=== PATIENT | female | born 1965 | race Caucasian/White ===

== ENCOUNTER 2019-08-12 10:11 | Emergency (ER) | payer SELFPAY ==
[2019-08-12] MEDS ORDERED: LORazepam 2 MG/ML SDV IVPUSH ONE (11:10)
[2019-08-12] MEDS ORDERED: Sodium Chloride 0.9% 10 ML Syringe FLUSH PRN (11:11)
[2019-08-12] MEDS ORDERED: Sodium Chloride 0.9% 1,000 ML IV SCH (11:15)
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
== END 2019-08-12 13:40 | disposition home or self-care (01) ==
LOC: JD.ED 10:11
DX: F41.9 Anxiety disorder, unspecified (principal); F32.9 Major depressive disorder, single episode, unspecified; F17.210 Nicotine dependence, cigarettes, uncomplicated; Z79.899 Other long term (current) drug therapy
CPT/HCPCS: 36415; 80053; 84443; 85025; 96361; 96374; 99283; J2060; J7040

== ENCOUNTER 2020-03-13 08:01 | Emergency (ER) | payer MEDICAID, OTHER ==
--- NOTE | 2020-03-13 08:43 | EDM.PDOC ---
ED HPI GENERAL MEDICAL PROBLEM - General Chief Complaint: Genitourinary Problem Stated Complaint: URINE RETENTION Time Seen by Provider: 03/13/20 08:10 Source of Information: Reports: Patient History Limitations: Reports: No Limitations - History of Present Illness INITIAL COMMENTS - FREE TEXT/NARRATIVE: The patient presents with urinary retention. She says this has been going on for a few days. It feels like she cannot empty her bladder all the way. She is up 4 times at night urinating. She has no burning with urination. Her doctor is trying different meds for her depression and she is concerned this may be affecting her ability to urinate. She has been very depressed lately and not doing much and not getting out of her house. She lays around a lot. She has no fever, chills, cough, congestion, chest pain, nausea or vomiting. She will get some lower abdominal pain at times when she has to urinate. She has never had trouble like this before. Onset: Gradual Duration: Day(s): Location: Reports: Abdomen Quality: Reports: Ache Severity: Mild Improves with: Reports: None Worsens with: Reports: None Associated Symptoms: Reports: No Other Symptoms - Related Data Allergies Allergy/AdvReac Type Severity Reaction Status Date / Time No Known Allergies Allergy Verified 03/13/20 08:18 Home Meds: Home Meds ClonazePAM [KlonoPIN] 1 mg PO BID 08/12/19 [History] Escitalopram Oxalate [Lexapro] 10 mg PO DAILY 03/13/20 [History] Omeprazole Magnesium [Prilosec] 10 mg PO DAILY 03/13/20 [History] PARoxetine [Paxil] 20 mg PO DAILY 03/13/20 [History] cephALEXin [Keflex] 500 mg PO BID #10 capsule 03/13/20 [Rx] Past Medical History Cardiovascular History: Reports: None Respiratory History: Reports: None Gastrointestinal History: Reports: None Genitourinary History: Reports: None 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 Musculoskeletal History: Reports: None Neurological History: Reports: None Psychiatric History: Reports: Anxiety, Depression, Panic Attack Endocrine/Metabolic History: Reports: None Hematologic History: Reports: None Immunologic History: Reports: None Oncologic (Cancer) History: Reports: None Dermatologic History: Reports: None - Infectious Disease History Infectious Disease History: Reports: None - Past Surgical History Head Surgeries/Procedures: Reports: None HEENT Surgical History: Reports: Oral Surgery Female Surgical History: Reports: Other (See Below) Other Female Surgeries/Procedures: uterine fibriod removal Social & Family History - Tobacco Use Smoking Status *Q: Never Smoker - Caffeine Use Caffeine Use: Reports: None - Recreational Drug Use Recreational Drug Use: No ED ROS GENERAL - Review of Systems Review Of Systems: See Below Constitutional: Reports: No Symptoms HEENT: Reports: No Symptoms Respiratory: Reports: No Symptoms Cardiovascular: Reports: No Symptoms Endocrine: Reports: No Symptoms GI/Abdominal: Reports: Abdominal Pain : Reports: Frequency. Denies: Dysuria Musculoskeletal: Reports: No Symptoms ED EXAM, GI/ABD - Physical Exam Exam: See Below Exam Limited By: No Limitations General Appearance: Alert, No Apparent Distress Ears: Normal External Exam Nose: Normal Inspection Head: Atraumatic, Normocephalic Neck: Normal Inspection Respiratory/Chest: No Respiratory Distress, Lungs Clear, Normal Breath Sounds Cardiovascular: Regular Rate, Rhythm, No Edema, No Murmur GI/Abdominal Exam: Soft, Non-Tender, No Organomegaly, No Mass Course - Vital Signs Last Recorded V/S: Last Vital Signs Temp 98.3 F 03/13/20 08:15 Pulse 87 03/13/20 08:15 Resp 16 03/13/20 08:15 BP 105/83 03/13/20 08:15 Pulse Ox 96 03/13/20 08:15 - Orders/Labs/Meds Orders: Active Orders 24 hr Category Date Time Status CULTURE URINE [RM] Stat Lab 03/13/20 08:40 Received Labs: Laboratory Tests 03/13/20 03/13/20 03/13/20 Range/Units 08:40 08:47 08:47 WBC 4.48 (3.98-10.04) K/mm3 RBC 4.01 (3.98-5.22) M/mm3 Hgb 12.1 D (11.2-15.7) gm/dl Hct 37.9 (34.1-44.9) % MCV 94.5 (79.4-94.8) fl MCH 30.2 (25.6-32.2) pg MCHC 31.9 L (32.2-35.5) g/dl RDW Std Deviation 46.4 H (36.4-46.3) fL Plt Count 252 D (182-369) K/mm3 MPV 9.7 (9.4-12.3) fl Neut % (Auto) 64.4 (34.0-71.1) % Lymph % (Auto) 26.3 (19.3-51.7) % [place] % (Auto) 5.6 (4.7-12.5) % Eos % (Auto) 3.1 (0.7-5.8) Baso % (Auto) 0.4 (0.1-1.2) % Neut # (Auto) 2.88 (1.56-6.13) K/mm3 Lymph # (Auto) 1.18 (1.18-3.74) K/mm3 [place] # (Auto) 0.25 (0.24-0.36) K/mm3 Eos # (Auto) 0.14 (0.04-0.36) K/mm3 Baso # (Auto) 0.02 (0.01-0.08) K/mm3 Sodium 142 (136-145) mEq/L Potassium 4.2 (3.5-5.1) mEq/L Chloride 105 (98-107) mEq/L Carbon Dioxide 26 (21-32) mEq/L Anion Gap 15.2 H (5-15) BUN 11 (7-18) mg/dL Creatinine 0.9 (0.55-1.02) mg/dL Est Cr Clr Drug Dosing 67.67 mL/min Estimated GFR (MDRD) > 60 (>60) mL/min BUN/Creatinine Ratio 12.2 L (14-18) Glucose 112 H (74-106) mg/dL Calcium 8.9 (8.5-10.1) mg/dL Total Bilirubin 0.4 (0.2-1.0) mg/dL AST 15 (15-37) U/L ALT 26 (14-59) U/L Alkaline Phosphatase 73 (46-116) U/L Total Protein 6.7 (6.4-8.2) g/dl Albumin 3.5 (3.4-5.0) g/dl Globulin 3.2 gm/dL Albumin/Globulin Ratio 1.1 (1-2) Urine Color Yellow (Yellow) Urine Appearance Clear (Clear) Urine pH 5.5 (5.0-8.0) Ur Specific [place] 1.025 (1.005-1.030) Urine Protein Negative (Negative) Urine Glucose (UA) Negative (Negative) Urine Ketones Negative (Negative) Urine Occult Blood Negative (Negative) Urine Nitrite Negative (Negative) Urine Bilirubin Negative (Negative) Urine Urobilinogen 0.2 (0.2-1.0) Ur Leukocyte Esterase 1+ H (Negative) Urine RBC 0-5 (0-5) /hpf Urine WBC 10-20 H (0-5) /hpf Ur Epithelial Cells 10-20 H (0-5) /hpf Urine Bacteria Many H (FEW) /hpf Urine Mucus Many H (FEW) /hpf - Re-Assessments/Exams Free Text/Narrative Re-Assessment/Exam: 03/13/20 08:56 I ordered a UA and labs. 03/13/20 09:53 Her CBC and CMP look good. Her UA shows a UTI. I have ordered a culture and I will give her some keflex. Departure - Departure Time of Disposition: 09:55 Disposition: Home, Self-Care 01 Condition: Good Clinical Impression: UTI (urinary tract infection) Qualifiers: Urinary tract infection type: acute cystitis Hematuria presence: without hematuria Qualified Code(s): N30.00 - Acute cystitis without hematuria - Discharge Information *PRESCRIPTION DRUG MONITORING PROGRAM REVIEWED*: Not Applicable *COPY OF PRESCRIPTION DRUG MONITORING REPORT IN PATIENT ROSIE: Not Applicable Prescriptions: cephALEXin [Keflex] 500 mg PO BID #10 capsule Referrals: Eloina Tian NP [Primary Care Provider] - 1 Week Forms: ED Department Discharge Additional Instructions: Take the keflex 2 times per day for 5 days. Drink plenty of fluids. Please return if you are worse. Sepsis Event Note - Evaluation Sepsis Screening Result: No Definite Risk - Focused Exam Vital Signs: Vital Signs Temp Pulse Resp BP Pulse Ox 03/13/20 08:15 98.3 F 87 16 105/83 96 Date Exam was Performed: 03/13/20 Time Exam was Performed: 09:53 - My Orders Last 24 Hours: My Active Orders 03/13/20 08:40 CULTURE URINE [RM] Stat - Assessment/Plan Last 24 Hours: My Active Orders 03/13/20 08:40 CULTURE URINE [RM] Stat
[2020-03-13] MEDS ORDERED: Cephalexin 500 MG Cap PO ONE (09:55)
== END 2020-03-13 10:04 | disposition home or self-care (01) ==
LOC: JD.ED 08:01
DX: N30.00 Acute cystitis without hematuria (principal); F41.9 Anxiety disorder, unspecified; F32.9 Major depressive disorder, single episode, unspecified; Z79.899 Other long term (current) drug therapy
CPT/HCPCS: 36415; 51798; 80053; 81001; 85025; 87086; 87088; 99283; A9270; 99282

== ENCOUNTER 2020-05-24 14:34 | Emergency (ER) | payer MEDICAID ==
[2020-05-24] MEDS ORDERED: Sodium Chloride 0.9% 10 ML Syringe FLUSH PRN (15:08)
[2020-05-24] MEDS ORDERED: Alum Hydrox/Mag Hydrox/Simeth 30 ML, Lidocaine 2% 15 ML PO ONE ×2 (17:09)
--- NOTE | 2020-05-24 17:44 | EDM.PDOC ---
ED HPI GENERAL MEDICAL PROBLEM - General Chief Complaint: Chest Pain Stated Complaint: SORE THROAT/CHEST PAIN Time Seen by Provider: 05/24/20 14:49 Source of Information: Reports: Patient History Limitations: Reports: No Limitations - History of Present Illness INITIAL COMMENTS - FREE TEXT/NARRATIVE: The patient present a racing heart, chest pain and shortness of breath. She s aid this morning she woke up with a racing heart. She took some klonopin and that helped. She also had some chest pain start. The pain is sharp in the mid chest. She has no shortness of breath with it. She has no fever, chills or cough. She had some people in her town test positive for COVID. She is wondering if she can get tested. She also swallowed a large fish oil pill a few days ago and it hurt her throat. Onset: Gradual Duration: Hour(s): Location: Reports: Chest Quality: Reports: Sharp Severity: Moderate Improves with: Reports: None Worsens with: Reports: None Associated Symptoms: Reports: Chest Pain. Denies: Cough, Fever/Chills, Headaches, Nausea/Vomiting, Shortness of Breath Left Chest Pain Score (Numeric/FACES): 8 - Related Data Allergies Allergy/AdvReac Type Severity Reaction Status Date / Time No Known Allergies Allergy Verified 05/24/20 14:52 Home Meds: Home Meds ClonazePAM [KlonoPIN] 1 mg PO TID 08/12/19 [History] Omeprazole Magnesium [Prilosec] 10 mg PO DAILY 03/13/20 [History] PARoxetine [Paxil] 10 mg PO DAILY 03/13/20 [History] Past Medical History Cardiovascular History: Reports: None Respiratory History: Reports: None Gastrointestinal History: Reports: None Genitourinary History: Reports: None 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 Musculoskeletal History: Reports: None Neurological History: Reports: None Psychiatric History: Reports: Anxiety, Depression, Panic Attack Endocrine/Metabolic History: Reports: None Hematologic History: Reports: None Immunologic History: Reports: None Oncologic (Cancer) History: Reports: None Dermatologic History: Reports: None - Infectious Disease History Infectious Disease History: Reports: None - Past Surgical History Head Surgeries/Procedures: Reports: None HEENT Surgical History: Reports: Oral Surgery Female Surgical History: Reports: Other (See Below) Other Female Surgeries/Procedures: uterine fibriod removal Social & Family History - Family History Family Medical History: Noncontributory - Tobacco Use Smoking Status *Q: Former Smoker Used Tobacco, but Quit: Yes Month/Year Tobacco Last Used: 2019 - Caffeine Use Caffeine Use: Reports: None - Recreational Drug Use Recreational Drug Use: Yes Drug Use in Last 12 Months: Yes Recreational Drug Type: Reports: Marijuana/Hashish ED ROS GENERAL - Review of Systems Review Of Systems: See Below Constitutional: Reports: No Symptoms HEENT: Reports: No Symptoms Respiratory: Reports: No Symptoms Cardiovascular: Reports: Chest Pain Endocrine: Reports: No Symptoms GI/Abdominal: Reports: No Symptoms : Reports: No Symptoms Musculoskeletal: Reports: No Symptoms ED EXAM, GENERAL - Physical Exam Exam: See Below Exam Limited By: No Limitations General Appearance: Alert, No Apparent Distress Ears: Normal External Exam Nose: Normal Inspection Head: Atraumatic, Normocephalic Neck: Normal Inspection Respiratory/Chest: No Respiratory Distress, Lungs Clear, Normal Breath Sounds Cardiovascular: Regular Rate, Rhythm, No Edema, No Murmur GI/Abdominal: Soft, Non-Tender, No Organomegaly, No Mass Back Exam: Normal Inspection Extremities: Normal Inspection EKG INTERPRETATION EKG Date: 05/24/20 Time: 16:02 Rhythm: NSR Rate (Beats/Min): 77 [place]: Normal P-Wave: Present QRS: Normal ST-T: Normal QT: Normal Course - Vital Signs Last Recorded V/S: Last Vital Signs Temp 97.9 F 05/24/20 14:47 Pulse 92 05/24/20 14:47 Resp 18 05/24/20 14:47 BP 114/84 05/24/20 14:47 Pulse Ox 96 05/24/20 14:47 - Orders/Labs/Meds Orders: Active Orders 24 hr Category Date Time Status Cardiac Monitoring [RC] . DIRECTED Care 05/24/20 15:08 Active EKG Documentation Completion [RC] STAT Care 05/24/20 15:08 Active Peripheral IV Care [RC] . DIRECTED Care 05/24/20 15:08 Active Chest 2V [CR] Stat Exams 05/24/20 15:08 Taken CORONAVIRUS COVID-19 PCR PHL Stat Lab 05/24/20 16:05 Received Sodium Chloride 0.9% [Saline Flush] Med 05/24/20 15:08 Active 10 ml FLUSH ASDIRECTED PRN Peripheral IV Insertion Adult [OM.PC] Stat Oth 05/24/20 15:08 Ordered Medication Orders Sodium Chloride (Saline Flush) 10 ml FLUSH ASDIRECTED PRN PRN Reason: Keep Vein Open Labs: Laboratory Tests 05/24/20 05/24/20 Range/Units 15:45 15:45 WBC 4.34 (3.98-10.04) K/mm3 RBC 4.03 (3.98-5.22) M/mm3 Hgb 12.1 (11.2-15.7) gm/dl Hct 37.9 (34.1-44.9) % MCV 94.0 (79.4-94.8) fl MCH 30.0 (25.6-32.2) pg MCHC 31.9 L (32.2-35.5) g/dl RDW Std Deviation 46.9 H (36.4-46.3) fL Plt Count 297 (182-369) K/mm3 MPV 10.0 (9.4-12.3) fl Neut % (Auto) 56.9 (34.0-71.1) % Lymph % (Auto) 31.1 (19.3-51.7) % [place] % (Auto) 8.5 (4.7-12.5) % Eos % (Auto) 3.0 (0.7-5.8) Baso % (Auto) 0.5 (0.1-1.2) % Neut # (Auto) 2.47 (1.56-6.13) K/mm3 Lymph # (Auto) 1.35 (1.18-3.74) K/mm3 [place] # (Auto) 0.37 H (0.24-0.36) K/mm3 Eos # (Auto) 0.13 (0.04-0.36) K/mm3 Baso # (Auto) 0.02 (0.01-0.08) K/mm3 Sodium 139 (136-145) mEq/L Potassium 3.5 (3.5-5.1) mEq/L Chloride 103 (98-107) mEq/L Carbon Dioxide 29 (21-32) mEq/L Anion Gap 10.5 (5-15) BUN 14 (7-18) mg/dL Creatinine 0.8 (0.55-1.02) mg/dL Est Cr Clr Drug Dosing 73.18 mL/min Estimated GFR (MDRD) > 60 (>60) mL/min BUN/Creatinine Ratio 17.5 (14-18) Glucose 109 H (74-106) mg/dL Calcium 9.0 (8.5-10.1) mg/dL Total Bilirubin 0.2 (0.2-1.0) mg/dL AST 17 (15-37) U/L ALT 32 (14-59) U/L Alkaline Phosphatase 67 (46-116) U/L Troponin I < 0.017 (0.00-0.056) ng/mL Total Protein 7.1 (6.4-8.2) g/dl Albumin 3.5 (3.4-5.0) g/dl Globulin 3.6 gm/dL Albumin/Globulin Ratio 1.0 (1-2) Meds: Medications Generic Name Dose Route Start Last Admin Trade Name Freq PRN Reason Stop Dose Admin Sodium Chloride 10 ml 05/24/20 15:08 Saline Flush FLUSH ASDIRECTED PRN Keep Vein Open Discontinued Medications Generic Name Dose Route Start Last Admin Trade Name Freq PRN Reason Stop Dose Admin Al Hydroxide/Mg Hydroxide 30 0 ml 05/24/20 17:09 05/24/20 17:37 ml/ Lidocaine HCl 15 ml PO 05/24/20 17:10 45 ml ONETIME ONE Administration - Re-Assessments/Exams Free Text/Narrative Re-Assessment/Exam: 05/24/20 17:43 I ordered an EKG, CXR and labs. Her EKG shows a NSR with no acute changes. Her CXR looks good. Her CBC and CMP look good. Her troponin is negative. I gave her a GI cocktail. She is very upset now that she had to wait and she would like to go. I will discharge her home. Departure - Departure Time of Disposition: 17:45 Disposition: Home, Self-Care 01 Condition: Good Clinical Impression: Atypical chest pain Referrals: Eloina Tian ELEMENTARY SCHOOL MUSIC TEACHER [Primary Care Provider] - 1 Week Additional Instructions: Take your medication as prescribed. Please return if you are worse. Sepsis Event Note (ED) - Evaluation Sepsis Screening Result: No Definite Risk - Focused Exam Vital Signs: Vital Signs Temp Pulse Resp BP Pulse Ox 05/24/20 14:47 97.9 F 92 18 114/84 96 - My Orders Last 24 Hours: My Active Orders 05/24/20 15:08 Cardiac Monitoring [RC] . DIRECTED EKG Documentation Completion [RC] STAT Peripheral IV Care [RC] . DIRECTED Chest 2V [CR] Stat Sodium Chloride 0.9% [Saline Flush] 10 ml FLUSH ASDIRECTED PRN Peripheral IV Insertion Adult [OM.PC] Stat 05/24/20 16:05 CORONAVIRUS COVID-19 PCR PHL Stat - Assessment/Plan Last 24 Hours: My Active Orders 05/24/20 15:08 Cardiac Monitoring [RC] . DIRECTED EKG Documentation Completion [RC] STAT Peripheral IV Care [RC] . DIRECTED Chest 2V [CR] Stat Sodium Chloride 0.9% [Saline Flush] 10 ml FLUSH ASDIRECTED PRN Peripheral IV Insertion Adult [OM.PC] Stat 05/24/20 16:05 CORONAVIRUS COVID-19 PCR PHL Stat
--- NOTE | 2020-05-25 09:26 | CR ---
Chest: 2 views of the chest were obtained. Comparison: No prior chest imaging is available. Heart size and mediastinum are normal. Lungs are clear with no acute parenchymal change. Bony structures appear within normal limits for the patient's age. Impression: 1. Nothing acute is appreciated on 2 view chest x-ray. Diagnostic code #1 This report was dictated in MDT
== END 2020-05-24 17:55 | disposition home or self-care (01) ==
LOC: JD.ED 14:34
DX: R07.89 Other chest pain (principal); F32.9 Major depressive disorder, single episode, unspecified; F41.0 Panic disorder [episodic paroxysmal anxiety]; Z79.899 Other long term (current) drug therapy; Z11.59 Encounter for screening for other viral diseases
CPT/HCPCS: 36415; 71046; 80053; 84484; 85025; 87635; 93005; 99285; A9270; 93010; 99283; U0002

== ENCOUNTER 2020-06-23 09:34 | Emergency (ER) | payer MEDICAID ==
--- NOTE | 2020-06-23 10:34 | EDM.PDOC ---
ED HPI GENERAL MEDICAL PROBLEM - General Chief Complaint: Upper Extremity Injury/Pain Stated Complaint: L ARM PAIN Time Seen by Provider: 06/23/20 09:49 Source of Information: Reports: Patient, RN Notes Reviewed - History of Present Illness INITIAL COMMENTS - FREE TEXT/NARRATIVE: 54 yr old female with onset of L upper arm pain during the night, now better. Still having mild discomfort and soreness L upper lateral arm. Does not recall any particular injury. Her mother of PE so very worried about blood clots. No chest pain or difficulty breathing. No arm swelling. Pain does not radiate to wrist or hand. 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 Musculoskeletal History: Reports: None Neurological History: Reports: None Psychiatric History: Reports: Anxiety, Depression, Panic Attack, PTSD, Other (See Below) Other Psychiatric History: pt states her PCP is changing a lot of meds over the past 10-11 months to see what med is or isnt working Endocrine/Metabolic History: Reports: None Hematologic History: Reports: None Immunologic History: Reports: None Oncologic (Cancer) History: Reports: None Dermatologic History: Reports: None - Infectious Disease History Infectious Disease History: Reports: None - Past Surgical History Head Surgeries/Procedures: Reports: None HEENT Surgical History: Reports: Oral Surgery Female Surgical History: Reports: Other (See Below) Other Female Surgeries/Procedures: uterine fibriod removal Social & Family History - Family History Family Medical History: Noncontributory - Tobacco Use Smoking Status *Q: Light Tobacco Smoker Years of Tobacco use: 0 Packs/Tins Daily: 0 - Caffeine Use Caffeine Use: Reports: None Review of Systems - Review of Systems Review Of Systems: See Below Constitutional: Reports: No Symptoms Mouth/Throat: Reports: No Symptoms Respiratory: Reports: No Symptoms Cardiovascular: Reports: No Symptoms GI/Abdominal: Reports: No Symptoms Musculoskeletal: Reports: Arm Pain Skin: Reports: No Symptoms Neurological: Reports: No Symptoms ED EXAM, GENERAL - Physical Exam Exam: See Below General Appearance: Alert, No Apparent Distress Head: Atraumatic Neck: Supple Respiratory/Chest: No Respiratory Distress Extremities: Other (Mild tenderness L upper lateral arm about 5 cm below shoulder jt. No warmth or swelling entire LUE. ) Neurological: Alert, Oriented, No Motor/Sensory Deficits Skin Exam: Warm, Dry, Normal Color Course - Vital Signs Last Recorded V/S: Last Vital Signs Temp 97.1 F 06/23/20 09:43 Pulse 80 06/23/20 09:43 Resp 18 06/23/20 09:43 BP 112/81 06/23/20 09:43 Pulse Ox 98 06/23/20 09:43 - Orders/Labs/Meds Labs: Laboratory Tests 06/23/20 Range/Units 10:25 D-Dimer, Quantitative 0.22 (0.19-0.50) mg/L - Re-Assessments/Exams Free Text/Narrative Re-Assessment/Exam: 06/23/20 13:38. D Dimer neg. Departure - Departure Time of Disposition: 11:35 Disposition: Home, Self-Care 01 Condition: Fair Clinical Impression: Strain of upper arm, left - Discharge Information Referrals: Eloina Tian NP [Primary Care Provider] - Forms: ED Department Discharge Additional Instructions: Your D Dimer was normal. No evidence for a blood clot. Rest arm. alternate ice and heat as needed. Tylenol of ibuprofen if needed. Sepsis Event Note (ED) - Evaluation Sepsis Screening Result: No Definite Risk - Focused Exam Vital Signs: Vital Signs Temp Pulse Resp BP Pulse Ox 06/23/20 09:43 97.1 F 80 18 112/81 98
== END 2020-06-23 11:35 | disposition home or self-care (01) ==
LOC: JD.ED 09:34
DX: S46.912A Strain of unspecified muscle, fascia and tendon at shoulder and upper arm level, left arm, initial encounter (principal); F41.0 Panic disorder [episodic paroxysmal anxiety]; F32.9 Major depressive disorder, single episode, unspecified; F17.290 Nicotine dependence, other tobacco product, uncomplicated; Z79.899 Other long term (current) drug therapy; X58.XXXA Exposure to other specified factors, initial encounter
CPT/HCPCS: 36415; 85379; 99282; 99283

== ENCOUNTER 2020-12-01 08:00 | Emergency (ER) | payer MEDICAID ==
--- NOTE | 2020-12-01 08:45 | EDM.PDOCBH ---
ED HPI GENERAL MEDICAL PROBLEM - General Chief Complaint: Behavioral/Psych Stated Complaint: MENTAL HEALTH EVAL Time Seen by Provider: 12/01/20 08:15 Source of Information: Reports: Patient, RN Notes Reviewed - History of Present Illness INITIAL COMMENTS - FREE TEXT/NARRATIVE: 55 yr old female has had "weird dreams" for about the past week or so. She states she is waking up around 6 Am and than unable to get back to sleep. However when questioned she is going to sleep early in the evening around 6 PM. She was released from inpatient mental health about 2 weeks ago. She states her paxil dosage was increased about a week ago by her Psychiatrist. She will see Dr Cunningham at [facility] next week. 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 Musculoskeletal History: Reports: None Neurological History: Reports: None Psychiatric History: Reports: Anxiety, Depression, Panic Attack, PTSD, Other (See Below) Other Psychiatric History: pt states her PCP is changing a lot of meds over the past 10-11 months to see what med is or isnt working Endocrine/Metabolic History: Reports: None Hematologic History: Reports: None Immunologic History: Reports: None Oncologic (Cancer) History: Reports: None Dermatologic History: Reports: None - Infectious Disease History Infectious Disease History: Reports: Chicken Pox - Past Surgical History HEENT Surgical History: Reports: Oral Surgery Female Surgical History: Reports: Other (See Below) Other Female Surgeries/Procedures: uterine fibriod removal Social & Family History - Family History Family Medical History: No Pertinent Family History - Tobacco Use Tobacco Use Status *Q: Never Tobacco User Second Hand Smoke Exposure: No - Caffeine Use Caffeine Use: Reports: None - Recreational Drug Use Recreational Drug Use: No ED ROS GENERAL - Review of Systems Review Of Systems: See Below Constitutional: Denies: Fever, Chills HEENT: Reports: No Symptoms Respiratory: Denies: Shortness of Breath Cardiovascular: Denies: Chest Pain GI/Abdominal: Denies: Abdominal Pain, Vomiting Musculoskeletal: Reports: No Symptoms Skin: Reports: No Symptoms Neurological: Denies: Dizziness, Headache, Difficulty Walking Psychiatric: Reports: Anxiety, Depression. Denies: Hallucinations, Suicidal Ideation ED EXAM, BEHAVIORAL HEALTH - Physical Exam Exam: See Below General Appearance: Alert, No Apparent Distress Throat/Mouth: Normal Inspection Head: Atraumatic Neck: Supple Respiratory/Chest: No Respiratory Distress, Lungs Clear, Normal Breath Sounds Cardiovascular: Tachycardia Extremities: Normal Inspection, Normal Range of Motion Neurological: Alert, No Motor/Sensory Deficits, Oriented x 3 Psychiatric: Alert, Flat Affect. No: Tearful, Suicidal Thoughts Skin Exam: Warm, Dry, Normal color COURSE, BEHAVIORAL HEALTH COMP - Course Vital Signs: Last Vital Signs Temp 97.8 F 12/01/20 08:05 Pulse 112 H 12/01/20 08:05 Resp 16 12/01/20 08:05 BP 123/86 12/01/20 08:05 Pulse Ox 98 12/01/20 08:05 Departure - Departure Time of Disposition: 08:43 Disposition: Home, Self-Care 01 Condition: Fair Clinical Impression: Sleep concern, Depressive disorder - Discharge Information Referrals: Eloina Tian NP [Primary Care Provider] - Forms: ED Department Discharge Additional Instructions: Continue current medications as previously prescribed. Try stay up later at night so you will be able to sleep later in the morning as discussed. See Dr Cunningham next week as planned. Try get outside and walk 2 to 3 times daily. That will help you feel better and help you sleep better. Sepsis Event Note (ED) - Evaluation Sepsis Screening Result: No Definite Risk - Focused Exam Vital Signs: Vital Signs Temp Pulse Resp BP Pulse Ox 12/01/20 08:05 97.8 F 112 H 16 123/86 98
== END 2020-12-01 09:05 | disposition home or self-care (01) ==
LOC: JD.ED 08:00
DX: F32.9 Major depressive disorder, single episode, unspecified (principal); R00.0 Tachycardia, unspecified
CPT/HCPCS: 99283

== ENCOUNTER 2020-12-02 06:40 | Emergency (ER) | payer MEDICAID ==
--- NOTE | 2020-12-02 07:41 | EDM.PDOC ---
ED HPI GENERAL MEDICAL PROBLEM - General Chief Complaint: Skin Complaint Stated Complaint: SKIN COMPLAINT/RASH/ABD PAIN Time Seen by Provider: 12/02/20 07:21 Source of Information: Reports: Patient, RN Notes Reviewed - History of Present Illness INITIAL COMMENTS - FREE TEXT/NARRATIVE: 55 yr old female with C/O itchy skin face, neck, scalp and to a lesser extent arms and legs. She does have hx of severe anxiety, depression. Is worried that she "caught something" while at inpatient mental Health at what sounds like [facility] about a month ago. She has an area of rash behind her L ear, no other area of visible rash. 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 Musculoskeletal History: Reports: None Neurological History: Reports: None Psychiatric History: Reports: Anxiety, Depression, Panic Attack, PTSD Other Psychiatric History: pt states her PCP is changing a lot of meds over the past 10-11 months to see what med is or isnt working Endocrine/Metabolic History: Reports: None Hematologic History: Reports: None Immunologic History: Reports: None Oncologic (Cancer) History: Reports: None Dermatologic History: Reports: None - Infectious Disease History Infectious Disease History: Reports: Chicken Pox - Past Surgical History Head Surgeries/Procedures: Reports: None HEENT Surgical History: Reports: Oral Surgery Female Surgical History: Reports: Other (See Below) Other Female Surgeries/Procedures: uterine fibriod removal Social & Family History - Family History Family Medical History: No Pertinent Family History - Tobacco Use Tobacco Use Status *Q: Never Tobacco User - Caffeine Use Caffeine Use: Reports: None - Recreational Drug Use Recreational Drug Use: No ED ROS GENERAL - Review of Systems Review Of Systems: See Below Constitutional: Denies: Fever, Chills HEENT: Reports: No Symptoms Respiratory: Denies: Shortness of Breath Cardiovascular: Denies: Chest Pain GI/Abdominal: Denies: Abdominal Pain, Nausea, Vomiting Musculoskeletal: Reports: No Symptoms Skin: Reports: Pruritis, Erythema (behind L ear) Neurological: Reports: No Symptoms Psychiatric: Reports: Anxiety ED EXAM, SKIN/RASH Exam: See Below General Appearance: Alert, Anxious Head: Atraumatic, Other (there is an area of erythema and swelling behind L ear and posterior ear lobe, no drainage, area of some dry scaly skin mid nose) Neck: Supple Respiratory/Chest: No Respiratory Distress, Lungs Clear Cardiovascular: Regular Rate, Rhythm Skin: Other (skin is otherwise clear, scalp has a small amt of dandruff, no rash or lesions) Course - Vital Signs Last Recorded V/S: Last Vital Signs Temp 98.1 F 12/02/20 07:08 Pulse 103 H 12/02/20 08:12 Resp 12 12/02/20 07:08 BP 116/70 12/02/20 08:12 Pulse Ox 98 12/02/20 08:12 Departure - Departure Time of Disposition: 07:45 Disposition: Home, Self-Care 01 Condition: Fair Clinical Impression: Cellulitis - Discharge Information Prescriptions: cephALEXin [Cephalexin] 500 mg PO BID #14 capsule Instructions: Cellulitis, Adult Referrals: Eloina Tian NP [Primary Care Provider] - Forms: ED Department Discharge Additional Instructions: Keflex 500 mg twice daily for 1 week. Prescription has been sent to [facility] at the [facility]. Lubriderm lotion 2 to 3 times daily to any areas of dry and itchy skin. That is available at [facility], [facility], or any grocery store. Dry skin is itchy skin so using the lotion will help these areas feel much better. See Dr Cunningham next week as planned. Sepsis Event Note (ED) - Evaluation Sepsis Screening Result: No Definite Risk - Focused Exam Vital Signs: Vital Signs Temp Pulse Resp BP Pulse Ox 12/02/20 08:12 103 H 116/70 98 12/02/20 07:08 98.1 F 108 H 12 117/89 95
== END 2020-12-02 08:13 | disposition home or self-care (01) ==
LOC: JD.ED 06:40
DX: H60.12 Cellulitis of left external ear (principal); Z79.899 Other long term (current) drug therapy
CPT/HCPCS: 99282; 99283